=== PATIENT | male | born 1960 | race Caucasian/White ===

== ENCOUNTER 2022-04-28 08:01 | Outpatient (CLI) | payer BC, MEDICAID, SELFPAY | END 2022-04-28 08:02 | disposition home or self-care (01) | LOC: WOUND 08:02 | PROVIDERS: PCP Family Medicine; Visit Provider Nurse Practitioner Family | DX: E11.21 Type 2 diabetes mellitus with diabetic nephropathy (principal) | CPT/HCPCS: 99212 ==

== ENCOUNTER 2022-05-25 09:54 | Outpatient (CLI) | payer BC, MEDICAID, SELFPAY | END 2022-05-25 09:55 | disposition home or self-care (01) | LOC: WOUND 09:54 | PROVIDERS: PCP Family Medicine; Visit Provider Surgery | DX: E11.621 Type 2 diabetes mellitus with foot ulcer (principal); L97.419 Non-pressure chronic ulcer of right heel and midfoot with unspecified severity; Z79.84 Long term (current) use of oral hypoglycemic drugs | CPT/HCPCS: 97597 ==

== ENCOUNTER 2022-06-01 08:09 | Outpatient (CLI) | payer BC, MEDICAID, SELFPAY | END 2022-06-01 08:10 | disposition home or self-care (01) | PROVIDERS: PCP Family Medicine; Visit Provider Surgery | DX: E11.621 Type 2 diabetes mellitus with foot ulcer (principal); L97.512 Non-pressure chronic ulcer of other part of right foot with fat layer exposed; Z79.84 Long term (current) use of oral hypoglycemic drugs | CPT/HCPCS: 97597 ==

== ENCOUNTER 2022-06-08 08:08 | Outpatient (CLI) | payer BC, MEDICAID, SELFPAY | END 2022-06-08 08:09 | disposition home or self-care (01) | LOC: WOUND 08:08 | PROVIDERS: PCP Family Medicine; Visit Provider Surgery | DX: E11.621 Type 2 diabetes mellitus with foot ulcer (principal); L97.512 Non-pressure chronic ulcer of other part of right foot with fat layer exposed; Z79.84 Long term (current) use of oral hypoglycemic drugs | CPT/HCPCS: 97597 ==

== ENCOUNTER 2022-06-15 08:24 | Outpatient (CLI) | payer BC, MEDICAID, SELFPAY | END 2022-06-15 08:25 | disposition home or self-care (01) | LOC: WOUND 08:25 | PROVIDERS: PCP Family Medicine; Visit Provider Surgery | DX: E11.621 Type 2 diabetes mellitus with foot ulcer (principal); L97.512 Non-pressure chronic ulcer of other part of right foot with fat layer exposed; Z79.84 Long term (current) use of oral hypoglycemic drugs | CPT/HCPCS: 97597 ==

== ENCOUNTER 2022-06-22 08:33 | Outpatient (CLI) | payer BC, MEDICAID, SELFPAY | END 2022-06-22 08:34 | disposition home or self-care (01) | PROVIDERS: PCP Family Medicine; Visit Provider Surgery | DX: E11.621 Type 2 diabetes mellitus with foot ulcer (principal); L97.512 Non-pressure chronic ulcer of other part of right foot with fat layer exposed; L97.511 Non-pressure chronic ulcer of other part of right foot limited to breakdown of skin; Z79.84 Long term (current) use of oral hypoglycemic drugs | CPT/HCPCS: 97597 ==

== ENCOUNTER 2022-06-29 08:26 | Outpatient (CLI) | payer BC, MEDICAID, SELFPAY | END 2022-06-29 08:27 | disposition home or self-care (01) | LOC: WOUND 08:26 | PROVIDERS: PCP Family Medicine; Visit Provider Surgery | DX: E11.621 Type 2 diabetes mellitus with foot ulcer (principal); L97.511 Non-pressure chronic ulcer of other part of right foot limited to breakdown of skin; Z79.84 Long term (current) use of oral hypoglycemic drugs | CPT/HCPCS: 97597 ==

== ENCOUNTER 2022-07-06 09:20 | Outpatient (CLI) | payer BC, MEDICAID, SELFPAY | END 2022-07-06 09:21 | disposition home or self-care (01) | LOC: WOUND 09:20 | PROVIDERS: PCP Family Medicine; Visit Provider Surgery | DX: E11.621 Type 2 diabetes mellitus with foot ulcer (principal); L97.511 Non-pressure chronic ulcer of other part of right foot limited to breakdown of skin; Z79.84 Long term (current) use of oral hypoglycemic drugs | CPT/HCPCS: 97597 ==

== ENCOUNTER 2022-07-13 08:32 | Outpatient (CLI) | payer BC, MEDICAID, SELFPAY | END 2022-07-13 08:33 | disposition home or self-care (01) | PROVIDERS: PCP Family Medicine; Visit Provider Surgery | DX: E11.621 Type 2 diabetes mellitus with foot ulcer (principal); L97.511 Non-pressure chronic ulcer of other part of right foot limited to breakdown of skin | CPT/HCPCS: 97597 ==

== ENCOUNTER 2022-07-20 08:27 | Outpatient (CLI) | payer BC, MEDICAID, SELFPAY | END 2022-07-20 08:28 | disposition home or self-care (01) | LOC: WOUND 08:27 | PROVIDERS: PCP Family Medicine; Visit Provider Surgery | DX: E11.621 Type 2 diabetes mellitus with foot ulcer (principal); L97.512 Non-pressure chronic ulcer of other part of right foot with fat layer exposed; Z79.84 Long term (current) use of oral hypoglycemic drugs | CPT/HCPCS: 97597 ==

== ENCOUNTER 2022-07-27 08:39 | Outpatient (CLI) | payer BC, SELFPAY | END 2022-07-27 08:40 | disposition home or self-care (01) | PROVIDERS: PCP Family Medicine; Visit Provider Surgery | DX: E11.621 Type 2 diabetes mellitus with foot ulcer (principal); L97.511 Non-pressure chronic ulcer of other part of right foot limited to breakdown of skin; Z79.84 Long term (current) use of oral hypoglycemic drugs | CPT/HCPCS: 97597 ==

== ENCOUNTER 2022-08-03 08:27 | Outpatient (CLI) | payer BC, SELFPAY | END 2022-08-03 08:28 | disposition home or self-care (01) | LOC: WOUND 08:27 | PROVIDERS: PCP Family Medicine; Visit Provider Surgery | DX: E11.621 Type 2 diabetes mellitus with foot ulcer (principal); L97.511 Non-pressure chronic ulcer of other part of right foot limited to breakdown of skin; Z79.84 Long term (current) use of oral hypoglycemic drugs | CPT/HCPCS: 97597 ==

== ENCOUNTER 2022-08-10 08:28 | Outpatient (CLI) | payer BC, SELFPAY | END 2022-08-10 08:29 | disposition home or self-care (01) | LOC: WOUND 08:28 | PROVIDERS: PCP Family Medicine; Visit Provider Surgery | DX: E11.621 Type 2 diabetes mellitus with foot ulcer (principal); L97.511 Non-pressure chronic ulcer of other part of right foot limited to breakdown of skin; Z79.84 Long term (current) use of oral hypoglycemic drugs | CPT/HCPCS: 97597 ==

== ENCOUNTER 2022-08-24 08:35 | Outpatient (CLI) | payer BC, MEDICAID, SELFPAY | END 2022-08-24 08:36 | disposition home or self-care (01) | LOC: WOUND 08:35 | PROVIDERS: PCP Family Medicine; Visit Provider Surgery | DX: E11.621 Type 2 diabetes mellitus with foot ulcer (principal); L97.511 Non-pressure chronic ulcer of other part of right foot limited to breakdown of skin; Z79.84 Long term (current) use of oral hypoglycemic drugs | CPT/HCPCS: 99213 ==

== ENCOUNTER 2023-06-13 09:13 | Outpatient (RCR) | payer BC, MEDICAID, SELFPAY | END 2023-10-11 23:59 | disposition home or self-care (01) | PROVIDERS: PCP Family Medicine; Visit Provider Family Medicine | DX: G60.8 Other hereditary and idiopathic neuropathies (principal); R26.89 Other abnormalities of gait and mobility; R26.81 Unsteadiness on feet; M62.81 Muscle weakness (generalized); Z51.89 Encounter for other specified aftercare | CPT/HCPCS: 97112; 97161 ==

== ENCOUNTER 2024-02-09 10:29 | Outpatient (CLI) | payer BC, MEDICAID, SELFPAY | END 2024-02-09 10:30 | disposition home or self-care (01) | LOC: AMB 02-12 16:10 | PROVIDERS: PCP Family Medicine; Visit Provider Family Medicine | DX: R10.9 Unspecified abdominal pain (principal); R07.89 Other chest pain; R73.9 Hyperglycemia, unspecified; R11.2 Nausea with vomiting, unspecified | CPT/HCPCS: A0425; A0429 ==

== ENCOUNTER 2024-02-09 11:03 | Emergency (ER) | payer BC, MEDICAID, SELFPAY ==
[2024-02-09] VITALS (19 sets, daily range): BP systolic 109–141; BP diastolic 74–95; PULSE 103–115; RESP 18; TEMP 36.3; O2SAT 98–99; BMI 25.8
[2024-02-09 11:54] LABS: Basophils Absolute Auto 0.03 K/uL (0.00-0.30); Basophils Percent Auto 0.3 % (0.0-3.0); Eosinophils Absolute Auto 0.05 K/uL (0.00-0.50); Eosinophils Percent Auto 0.6 % (0.0-7.0); Hematocrit 33.4 % (37.0-53.0); Hemoglobin* 10.3 gm/dL (13.5-17.5); Immature Granulocytes Abs Auto 0.05 K/uL (0.00-0.30); Immature Granulocytes Pct Auto 0.6 %; Lymphocytes Percent Auto 15.5 % (20-44); Mean Corpuscular HGB Conc 31 gm/dL (32-36); Mean Corpuscular Hemoglobin 25 pg (26-34); Mean Corpuscular Volume 80 fL (80-100); Platelet Count* 312 K/uL (140-440); RDW Coefficient of Variation % 15.8 % (11.5-15.5); Red Blood Count 4.16 m/uL (4.30-5.90); White Blood Count* 8.73 K/uL (4.50-11.00)
[2024-02-09 11:57] LABS: Slide Review Reflex No
--- NOTE | 2024-02-09 12:12 | ED_ITS ---
HPI - General Adult General Chief complaint: Weakness Stated complaint: chest pain Time Seen by Provider: 02/09/24 11:18 Source: patient Mode of arrival: ambulatory Limitations: no limitations History of Present Illness HPI narrative: 63-year-old male coming in today after having an episode where he felt lightheaded and had chest pressure this morning. Patient was using the bathroom had a bowel movement. He shortly thereafter got up and was walking back to his post at work when all of a sudden he became very lightheaded, sweaty and dizzy. He developed very mild central chest pressure. He sat down, the episode lasted about 15 minutes at most and then resolved. His friends did call the ambulance at work by the time the ambulance arrived he was feeling normal. Patient was brought in for evaluation. Past medical history significant for Velasquez's esophagus, anal cancer, the hyperlipidemia, adjustment disorder with mixed anxiety and depression, hereditary and idiopathic peripheral neuropathy, microalbuminuria, colonic polyps, diabetes, HIV, lipid dystrophy, GERD, poorly healing foot ulcer- sees administrative nursing supervisor regularly. Medications include Imodium, metformin, Creon, glipizide, Viagra, Detrol LA, Pro tonix, Lipitor, daily aspirin, iron, Genvoya, vitamins. Related Data Previous Rx's Medication Instructions Recorded honey 100 % topical paste 1 applic topical BID-TID PRN wound 08/03/22 (MediHoney (honey)) healing #15 mL Allergies Allergy/AdvReac Type Severity Reaction Status Date / Time Penicillins Allergy Verified 02/09/24 11:07 Sulfa (Sulfonamide Allergy Verified 02/09/24 11:07 Antibiotics) Review of Systems Status of ROS: Reports: 10 or more systems reviewed and unremarkable except as noted in History and below [facility] Social History Smoking Status: Smoker, status unknown Do you use any of these nicotine containing products: None Second hand tobacco smoke exposure: Yes How often do you have a drink containing alcohol: monthly or less How many standard drinks containing alcohol do you have on a typical day: 1 or 2 How often do you have six or more drinks on one occasion: Never AUDIT-C Alcohol total score: 1 Non-prescribed substance use: denies use service: No Exam Narrative: Exam Narrative: Well-nourished well-developed patient in no acute distress. Alert and oriented. Answers questions appropriately. Mood and affect are appropriate. Thoughts are goal oriented and rational. No tangential or magical thinking noted. Patient speaks in full sentences without needing to catch his breath. HEENT: Normocephalic atraumatic. Pupils are equally round reactive to light. Extraocular muscles are intact. Conjunctivae are moist without any icterus noted. Moist mucous membranes. Posterior pharynx is normal. Neck is soft without any lymphadenopathy or thyromegaly. Cardiovascular: Heart is regular rate and rhythm S1 and S2 are present. Lungs: Clear to auscultation bilaterally no wheezes rhonchi or rales are appreciated. Patient takes deep breaths without any discomfort. Abdomen: Protuberant, firm and nontender. Normal bowel sounds. Difficult to assess for masses organomegaly secondary to body habitus. Patient has central obesity and thin extremities. Extremities: Bilateral lower extremities are without edema. I did not examine his feet. Skin: Well perfused. Const: Vital Signs, click to edit/add: Vital Signs - 24 hr 02/09/24 11:08 02/09/24 11:43 02/09/24 11:45 Temperature 97.3 F L Pulse Rate 107 H 108 H Pulse Rate [Pulse Oximeter] 105 H Respiratory Rate 18 Blood Pressure Blood Pressure [Ri ght Upper Arm] 129/87 Pulse Oximetry 99 99 99 Oxygen Delivery Me od Room Air 02/09/24 12:00 02/09/24 12:01 02/09/24 12:02 Temperature Pulse Rate 111 H 108 H 103 H Pulse Rate [Pulse Oximeter] Respiratory Rate Blood Pressure 128/93 H 125/95 H Blood Pressure [Ri ght Upper Arm] Pulse Oximetry 99 98 [facility] 12:15 02/09/24 12:30 02/09/24 12:32 Temperature Pulse Rate 115 H 105 H 108 H Pulse Rate [Pulse Oximeter] Respiratory Rate Blood Pressure 109/74 Blood Pressure [Ri ght Upper Arm] Pulse Oximetry 98 98 98 Oxygen Delivery Wy thod 02/09/24 12:45 02/09/24 13:00 02/09/24 13:01 Temperature Pulse Rate 109 H 106 H 107 H Pulse Rate [Pulse Oximeter] Respiratory Rate Blood Pressure 121/84 Blood Pressure [Ri ght Upper Arm] Pulse Oximetry 99 99 98 [facility] 02/09/24 13:15 02/09/24 13:30 02/09/24 13:32 Temperature Pulse Rate 108 H 107 H 112 H Pulse Rate [Pulse Oximeter] Respiratory Rate Blood Pressure 130/91 H Blood Pressure [Ri ght Upper Arm] Pulse Oximetry 99 98 99 Oxygen Delivery Me thod Course Course ED Course: Patient arrives, asymptomatic. EKG, read by me, shows sinus tachycardia with a pulse of 105. CBC shows mild anemia with a hemoglobin of 10.3, normal white blood cell count. Normal platelet count. Normal D-dimer. Chemistries are unremarkable. Glucose elevated at 245. Normal LFTs. Initial troponin is 0.01. Five UA showed 2+ glucose and trace ketones. Triple swab is negative. Repeat troponin is 0. Repeat EKG does not show any acute changes. We did discuss his pulse is slightly faster than normal, patient states that this has happened before. Unclear etiology. Patient remained asymptomatic while he was here. Vital Signs Vital signs: Initial Vital Signs Temperature 97.3 F L 02/09/24 11:08 Temperature Source Temporal Artery Scan 02/09/24 11:08 Pulse Rate 105 H 02/09/24 11:08 Pulse Rhythm Regular 02/09/24 11:08 Respiratory Rate 18 02/09/24 11:08 Blood Pressure 129/87 02/09/24 11:08 Blood Pressure Mean 101 02/09/24 11:08 Blood Pressure Position Supine 02/09/24 11:08 Pulse Oximetry 99 02/09/24 11:08 Oxygen Delivery Method Room Air 02/09/24 11:08 Vital Signs Temperature 97.3 F L 02/09/24 11:08 Pulse Rate 105 H 02/09/24 11:08 Respiratory Rate 18 02/09/24 11:08 Blood Pressure 129/87 02/09/24 11:08 Pulse Oximetry 99 02/09/24 11:08 Oxygen Delivery Method Room Air 02/09/24 11:08 Temperature 97.3 F L 02/09/24 11:08 Pulse Rate 112 H 02/09/24 13:32 Respiratory Rate 18 02/09/24 11:08 Blood Pressure 130/91 H 02/09/24 13:32 Pulse Oximetry 99 02/09/24 13:32 Oxygen Delivery Method Room Air 02/09/24 11:08 Medical Decision Making MDM Narrative Medical decision making narrative: 63-year-old male with an episode of dizziness after having a bowel movement. We discussed that this could represent a vasovagal episode. I do not see any evidence of coronary artery disease causing his symptoms which is what he was concerned about. His D-dimer is negative and he is not having any chest pain or shortness of breath. Recommend follow-up with primary care provider as needed. Medical Records Medical records reviewed: Yes I reviewed the patient's medical records Lab Data Lab results reviewed: Yes I reviewed the patient's lab results Labs: Lab Results 02/09/24 02/09/24 02/09/24 Range/Units 11:31 11:35 11:45 WBC 8.73 (4.50-11.00) K/uL RBC 4.16 L (4.30-5.90) m/uL Hgb 10.3 L (13.5-17.5) gm/dL Hct 33.4 L (37.0-53.0) % MCV 80 (80-100) fL MCH 25 L (26-34) pg MCHC 31 L (32-36) gm/dL RDW Coeff of Makayla 15.8 H (11.5-15.5) % Plt Count 312 (140-440) K/uL Neut % (Auto) 78.0 H (42.0-72.0) % Lymph % (Auto) 15.5 L (20-44) % [place] % (Auto) 5.0 (0.0-11.0) % Eos % (Auto) 0.6 (0.0-7.0) % Baso % (Auto) 0.3 (0.0-3.0) % Neut # (Auto) 6.80 (1.7-7.0) K/uL Lymph # (Auto) 1.40 (0.90-2.90) K/uL [place] # (Auto) 0.40 (0.00-0.90) K/UL Eos # (Auto) 0.05 (0.00-0.50) K/uL Baso # (Auto) 0.03 (0.00-0.30) K/uL Abs Immat Gran (auto) 0.05 (0.00-0.30) K/uL Imm/Tot Granulo (auto) 0.6 % D-Dimer Quant (PE/DVT) 0.50 (0.00-0.50) ug/ml Sodium 137 (135-149) mmol/L Potassium 4.3 (3.6-5.1) mmol/L Chloride 106 (96-114) mmol/L Carbon Dioxide 23 (20-32) mmol/L Anion Gap 8 (7-15) mEq/L BUN 16 (7-30) mg/dL Creatinine 0.9 (0.5-1.5) mg/dL Estimated Creat Clear 71.25 Estimated GFR 95 ml/min Glucose 245 H (60-115) mg/dL Calcium 8.7 (8.4-10.6) mg/dL Total Bilirubin 0.3 (0.1-1.5) mg/dL Direct Bilirubin 0.1 (0.0-0.5) mg/dL AST 24 (12-35) U/L ALT 28 (4-50) U/L Alkaline Phosphatase 86 (40-150) U/L Troponin I < 0.01 L (0.01-0.04) ng/mL C-Reactive Protein < 0.5 L (0.5-1.0) mg/dL Total Protein 7.1 (6.0-8.3) g/dL Albumin 4.1 (3.3-5.0) g/dL Lipase 139 (23-300) U/L Urine Color (Yellow) Urine Appearance (Clear) Urine pH (5.0-8.5) Ur Specific [place] (1.000-1.030) Urine Protein (Negative) Urine Glucose (UA) (Negative) Urine Ketones (Negative) Urine Blood (Negative) Urine Nitrite (Negative) Urine Bilirubin (Negative) Urine Urobilinogen (0.2-1.0) Ur Leukocyte Esterase (Negative) Urine RBC (0-2) Urine WBC (0-5) Ur Squamous Epith Cells (None-Few) Urine Bacteria (None) SARS-CoV-2 (PCR) Negative SARS-CoV-2 (Negative) Influenza Type A (PCR) Negative PCR FLU A (Negative) Influenza Type B (PCR) Negative PCR FLU B (Negative) POC Troponin I 0.01 (0.01-0.04) ng/ml 02/09/24 02/09/24 Range/Units 12:10 13:30 WBC (4.50-11.00) K/uL RBC (4.30-5.90) m/uL Hgb (13.5-17.5) gm/dL Hct (37.0-53.0) % MCV (80-100) fL MCH (26-34) pg MCHC (32-36) gm/dL RDW Coeff of Makayla (11.5-15.5) % Plt Count (140-440) K/uL Neut % (Auto) (42.0-72.0) % Lymph % (Auto) (20-44) % [place] % (Auto) (0.0-11.0) % Eos % (Auto) (0.0-7.0) % Baso % (Auto) (0.0-3.0) % Neut # (Auto) (1.7-7.0) K/uL Lymph # (Auto) (0.90-2.90) K/uL [place] # (Auto) (0.00-0.90) K/UL Eos # (Auto) (0.00-0.50) K/uL Baso # (Auto) (0.00-0.30) K/uL Abs Immat Gran (auto) (0.00-0.30) K/uL Imm/Tot Granulo (auto) % D-Dimer Quant (PE/DVT) (0.00-0.50) ug/ml Sodium (135-149) mmol/L Potassium (3.6-5.1) mmol/L Chloride (96-114) mmol/L Carbon Dioxide (20-32) mmol/L Anion Gap (7-15) mEq/L BUN (7-30) mg/dL Creatinine (0.5-1.5) mg/dL Estimated Creat Clear Estimated GFR ml/min Glucose (60-115) mg/dL Calcium (8.4-10.6) mg/dL Total Bilirubin (0.1-1.5) mg/dL Direct Bilirubin (0.0-0.5) mg/dL AST (12-35) U/L ALT (4-50) U/L Alkaline Phosphatase (40-150) U/L Troponin I (0.01-0.04) ng/mL C-Reactive Protein (0.5-1.0) mg/dL Total Protein (6.0-8.3) g/dL Albumin (3.3-5.0) g/dL Lipase (23-300) U/L Urine Color Yellow (Yellow) Urine Appearance Clear (Clear) Urine pH 5.5 (5.0-8.5) Ur Specific [place] 1.015 (1.000-1.030) Urine Protein Negative (Negative) Urine Glucose (UA) 2+ A (Negative) Urine Ketones Trace A (Negative) Urine Blood Negative (Negative) Urine Nitrite Negative (Negative) Urine Bilirubin Negative (Negative) Urine Urobilinogen 0.2 (0.2-1.0) Ur Leukocyte Esterase Negative (Negative) Urine RBC 0-2 (0-2) Urine WBC 0-2 (0-5) Ur Squamous Epith Cells Few (None-Few) Urine Bacteria Few A (None) SARS-CoV-2 (PCR) (Negative) Influenza Type A (PCR) (Negative) Influenza Type B (PCR) (Negative) POC Troponin I 0.00 L (0.01-0.04) ng/ml ECG Data Attestation: I personally reviewed and interpreted this ECG as follows: Discharge Plan Discharge Clinical Impression: Pre-syncope Patient Disposition: Home, Self-Care Condition: Stable Additional Instructions: Your workup today did not reveal any evidence of any life-threatening problem. It is not uncommon for people to feel lightheaded right after having a bowel movement. Your pulse is a little bit faster than normal. Recommend you follow-up with y our primary care provider to discuss this. Prescriptions: No Action MediHoney (honey) 100 % paste 1 applic topical BID-TID PRN (Reason: wound healing) Qty: 15 5RF Follow Up/Referrals: Nanda Araya DO [Primary Care Provider] - Stand Alone Forms: MyHealth Info Instructions
[2024-02-09 12:14] LABS: Potassium* 4.3 mmol/L (3.6-5.1); Sodium* 137 mmol/L (135-149)
[2024-02-09 12:16] LABS: Creatinine* 0.9 mg/dL (0.5-1.5); Est. Creatinine Clearance* 71.25; Estimated Glomerular Filt Rate 95 ml/min
[2024-02-09 12:18] LABS: Anion Gap 8 mEq/L (7-15); Blood Urea Nitrogen* 16 mg/dL (7-30); Calcium* 8.7 mg/dL (8.4-10.6); Carbon Dioxide* 23 mmol/L (20-32); Chloride* 106 mmol/L (96-114); Glucose* 245 mg/dL (60-115)
[2024-02-09 12:22] LABS: Appearance Urine Clear (Clear); Bilirubin Urine Negative (Negative); Blood Urine Negative (Negative); Color Urine Yellow (Yellow); Glucose Urine 2+ (Negative); Ketones Urine Trace (Negative); Leukocyte Esterase Urine Negative (Negative); Nitrite Urine Negative (Negative); Protein Urine Negative (Negative); Specific Gravity Urine 1.015 (1.000-1.030); Urobilinogen Urine 0.2 (0.2-1.0); pH Urine 5.5 (5.0-8.5)
[2024-02-09 12:29] LABS: Total Protein* 7.1 g/dL (6.0-8.3)
[2024-02-09 12:30] LABS: Alanine Aminotransferase* 28 U/L (4-50); Albumin* 4.1 g/dL (3.3-5.0); Alkaline Phosphatase* 86 U/L (40-150); Aspartate Amino Transferase* 24 U/L (12-35); Bilirubin Direct* 0.1 mg/dL (0.0-0.5); Bilirubin Total* 0.3 mg/dL (0.1-1.5); Lipase* 139 U/L (23-300)
[2024-02-09 12:31] LABS: C Reactive Protein* < 0.5 mg/dL (0.5-1.0)
[2024-02-09 12:33] LABS: Troponin I* < 0.01 ng/mL (0.01-0.04)
[2024-02-09 12:34] LABS: Troponin, Point-of-Care* 0.01 ng/ml (0.01-0.04)
[2024-02-09 12:44] LABS: Bacteria Urine Few; RBC Urine 0-2 (0-2); Squamous Epithelial Cell Urine Few (None-Few); WBC Urine 0-2 (0-5)
[2024-02-09 13:06] LABS: PCR FLU A Negative PCR FLU A (Negative); PCR FLU B Negative PCR FLU B (Negative); SARS PCR* Negative SARS-CoV-2 (Negative)
== END 2024-02-09 14:07 | disposition home or self-care (01) ==
PROVIDERS: Emergency Provider Family Medicine; PCP Family Medicine
DX: R55 Syncope and collapse (principal); B20 Human immunodeficiency virus [HIV] disease
CPT/HCPCS: 36415; 80048; 80076; 81001; 83690; 84484; 85025; 85379; 86140; 87086; 87631; 93005; 94761; 99284

== ENCOUNTER 2025-04-15 09:48 | Outpatient (CLI) | payer BC, MEDICAID, SELFPAY | END 2025-04-15 09:49 | disposition home or self-care (01) | LOC: WOUND 09:49 | PROVIDERS: PCP Family Medicine; Referring Provider Family Medicine; Visit Provider Nurse Practitioner Family | DX: E11.621 Type 2 diabetes mellitus with foot ulcer (principal); E11.40 Type 2 diabetes mellitus with diabetic neuropathy, unspecified; L97.512 Non-pressure chronic ulcer of other part of right foot with fat layer exposed; D50.9 Iron deficiency anemia, unspecified; B97.35 Human immunodeficiency virus, type 2 [HIV 2] as the cause of diseases classified elsewhere; Z79.84 Long term (current) use of oral hypoglycemic drugs | CPT/HCPCS: 11042; G0463 ==

== ENCOUNTER 2025-04-23 08:09 | Outpatient (CLI) | payer BC, SELFPAY | END 2025-04-23 08:10 | disposition home or self-care (01) | LOC: WOUND 08:09 | PROVIDERS: PCP Family Medicine; Visit Provider Family Medicine | DX: E11.621 Type 2 diabetes mellitus with foot ulcer (principal); L97.512 Non-pressure chronic ulcer of other part of right foot with fat layer exposed; B97.35 Human immunodeficiency virus, type 2 [HIV 2] as the cause of diseases classified elsewhere; D50.9 Iron deficiency anemia, unspecified; Z79.84 Long term (current) use of oral hypoglycemic drugs | CPT/HCPCS: 97597 ==

== ENCOUNTER 2025-04-29 08:56 | Outpatient (CLI) | payer BC, SELFPAY | END 2025-04-29 08:57 | disposition home or self-care (01) | LOC: WOUND 08:56 | PROVIDERS: PCP Family Medicine; Visit Provider Physician Assistant | DX: Z86.31 Personal history of diabetic foot ulcer (principal); E11.40 Type 2 diabetes mellitus with diabetic neuropathy, unspecified; B97.35 Human immunodeficiency virus, type 2 [HIV 2] as the cause of diseases classified elsewhere; D50.9 Iron deficiency anemia, unspecified; Z79.84 Long term (current) use of oral hypoglycemic drugs | CPT/HCPCS: G0463 ==